=== PATIENT | female | born 1965 | race Asian ===

== ENCOUNTER 2019-09-23 11:00 | Outpatient (CLI) | payer OTHER | END 2019-09-23 19:17 | disposition home or self-care (01) | LOC: RAD 11:00 | DX: M25.511 Pain in right shoulder (principal); M19.90 Unspecified osteoarthritis, unspecified site; G56.00 Carpal tunnel syndrome, unspecified upper limb; I10 Essential (primary) hypertension ==

== ENCOUNTER 2020-01-02 11:13 | Outpatient (CLI) | payer OTHER | END 2020-01-02 19:05 | disposition home or self-care (01) | LOC: LAB 11:13 | PROVIDERS: ATTEND Nurse Practitioner Family | DX: R30.0 Dysuria (principal); R10.30 Lower abdominal pain, unspecified | CPT/HCPCS: 81000; 87088 ==